=== PATIENT | female | born 1980 | race Hispanic/Latino ===

== ENCOUNTER 2020-06-21 18:06 | Emergency (ER) | payer BC, MEDICAID ==
--- NOTE | 2020-06-21 19:28 | RAD ---
LEFT ANKLE THREE VIEWS: History: Injury Comparison: None FINDINGS: No acute displaced fracture or malalignment. No lateral talar shift. IMPRESSION: No acute osseous abnormality. POS: HOME
[2020-06-21] MEDS ORDERED: Boostrix 0.5 ML (Tdap) VIAL ONE (19:53)
== END 2020-06-21 20:13 | disposition home or self-care (01) ==
LOC: ERS 18:06
DX: S80.12XA Contusion of left lower leg, initial encounter (principal); W17.89XA Other fall from one level to another, initial encounter
CPT/HCPCS: 90471; 90715